=== PATIENT | male | born 1950 | race Caucasian/White ===

== ENCOUNTER 2023-05-17 13:36 | Inpatient (IN) | payer OTHER, BC ==
[2023-05-17 14:29] VITALS: BMI 29.8
[2023-05-17] MEDS ORDERED: ONDANSETRON *ODT* 4 MG TABLET SL PRN (17:39)
[2023-05-17] MEDS ORDERED: LOPERAMIDE HCL 2 MG CAPSULE PO PRN (17:39)
[2023-05-17] MEDS ORDERED: BENZOCAINE/MENTHOL (CHLORASEPTIC ) LOZENGE MM PRN (17:39)
[2023-05-17] MEDS ORDERED: NALOXONE HCL 0.4 MG/ML VIAL IM PRN (17:39)
[2023-05-17] MEDS ORDERED: BENZONATATE 200 MG CAPSULE PO PRN (17:39)
[2023-05-17] MEDS ORDERED: BISMUTH SUBSALICYLATE 524 MG/30 ML PO PRN (17:39)
[2023-05-17] MEDS ORDERED: POLYETHYLENE GLYCOL (HEALTHYLAX) 3350 17 GM PACKET PO PRN (17:39)
[2023-05-17] MEDS ORDERED: MAGNESIUM HYDROX 2400MG/30ML ORAL SUSPENSION 30 ML CUP PO PRN (17:39)
[2023-05-17] MEDS ORDERED: P-EPHED 60MG/TRIPROLIDI 2.5MG TABLET PO PRN (17:39)
[2023-05-17] MEDS ORDERED: NALOXONE HCL (KLOXXADO) 8 MG SPRAY NS PRN (17:39)
[2023-05-17] MEDS ORDERED: MAG HYDROX/AL HYDROX/SIMETH 30 ML UNIT-DOSE CUP PO PRN (17:39)
[2023-05-17] MEDS ORDERED: guaiFENesin 600 MG TABLET.ER (FP) PO PRN (17:39)
[2023-05-17] MEDS ORDERED: IBUPROFEN 400 MG TABLET (FP) PO ONE (18:40)
[2023-05-17] MEDS ORDERED: ACETAMINOPHEN 325 MG TABLET (FP) ONE (18:40)
[2023-05-17] MEDS: IBUPROFEN 400 MG TABLET (FP) PO PRN (18:42)
[2023-05-17] MEDS: ACETAMINOPHEN 325 MG TABLET (FP) PO PRN (18:49)
[2023-05-17] MEDS: MELATONIN 5 MG TABLETS PO SCH (22:16)
[2023-05-17] MEDS: THIAMINE HCL 100 MG TABLET (FP) PO SCH (22:16)
[2023-05-18 06:57] VITALS: RESP 16
[2023-05-18] MEDS: PRENATAL VITAMINS W/ FOLIC ACID TABLET (FP) PO SCH (09:06)
[2023-05-18 09:50] VITALS: TEMP 97.5
[2023-05-18] MEDS: NIRMATRELVIR/RITONAVIR 1 EACH TABLET PO SCH (10:36)
[2023-05-18 13:02] VITALS: BP 148/77; PULSE 60
== END 2023-05-18 17:15 | disposition home or self-care (01) | DRG 896 ==
LOC: YASAS 13:36 → Y6N 18:31
PROVIDERS: ADMIT Allergy & Immunology; ATTEND Surgery
PROC: HZ2ZZZZ Detoxification Services for Substance Abuse Treatment (ICD-10-PCS; principal; 2023-05-17)
DX: F11.20 Opioid dependence, uncomplicated (principal); U07.1 COVID-19; G62.9 Polyneuropathy, unspecified; I10 Essential (primary) hypertension; Z87.891 Personal history of nicotine dependence
CPT/HCPCS: 0241U-QW; 80305; 82962; 87811; 93005; 93010